=== PATIENT | male | born 1950 | race Caucasian/White ===

== ENCOUNTER 2023-08-24 20:25 | Emergency (ER) | payer MEDICARE, SELFPAY ==
[2023-08-24 20:30] VITALS: BP 169/86; PULSE 72; RESP 16; TEMP 36.3; O2SAT 99
--- NOTE | 2023-08-24 21:49 | ED_ITS ---
HPI - General Adult General Chief complaint: Abdominal Pain Stated complaint: Gallbladder Time Seen by Provider: 08/24/23 21:43 History of Present Illness HPI narrative: pt thinks his gallbladder is acting up. abd pain, upper right and left , no radiation. pt reports similar feeling on the , was not seen. 73-year-old man presenting to the emergency department concern of abdominal pain. Thinks that gallbladder might be acting up. Apparently about 3 years ago had a ?[place] [facility] scan? I take to mean ultrasound of carotids and other in the abdomen which apparently detected gallstones. On the of this month while in [place], had flare of upper abdominal pain which was apparently thought to be related to gallbladder. Now today at around 3:00 a.m. around 16 or 17 hours prior to arrival in the emergency department had abrupt onset of sharp and burning pain in the upper abdomen again. He gestures really across the upper abdomen and then had somewhat in lower. Only prior abdominal surgery was as a youth and inguinal hernia repair. He has had nausea but has not been vomiting. Pain was quite intense at 10/10. Spouse is emphatic that he has a very high pain tolerance. Now maybe a 3/10 does not seem to desire any intervention but they want to know what they need to do, make plan at this point before the head back to [place] in 2 and half days. Related Data Previous Rx's Medication Instructions Recorded metformin 500 mg tablet,extended 500 mg PO QDAY #90 tabs 04/29/22 release 24 hr omeprazole 20 mg capsule,delayed 20 mg PO QDAY #90 caps 04/29/22 release hydrocodone 5 mg-acetaminophen 325 1 - 2 tab PO Q4H PRN pain #12 tabs 08/25/23 mg tablet ondansetron 4 mg disintegrating 4 mg PO TID PRN nausea #10 tabs 08/25/23 tablet Allergies Allergy/AdvReac Type Severity Reaction Status Date / Time atorvastatin Allergy Unknown Verified 05/21/22 10:16 Review of Systems Status of ROS: Reports: 6 or more systems reviewed and unremarkable except as noted in History and below [facility] Medical History Obstructive sleep apnea syndrome ?G47.33 - Obstructive sleep apnea (adult) (pediatric) (ICD-10) Surgical History History of total right knee replacement ?Z96.651 - Presence of right artificial knee joint (ICD-10) History of total bilateral knee replacement ?Z96.653 - Presence of artificial knee joint, bilateral (ICD-10) History of hernia repair ?Z98.890 - Other specified postprocedural states (ICD-10) ?Z87.19 - Personal history of other diseases of the digestive system (ICD-10) History of colonoscopy ?Z98.890 - Other specified postprocedural states (ICD-10) Family History Father Colorectal cancer, Onset Age: 60 Thoracic aortic aneurysm (TAA), Onset Age: 50 Social History Narrative: Former cigarette smoker- quit 1980 Has 2 children, 3 grandchildren Smoking Status: Never smoker Non-prescribed substance use: denies use Exam Narrative: Exam Narrative: Pleasant. NAD. Skin is warm and dry. Extremities are well perfused without edema. Abdomen with rare but present abdominal sounds. Abdomen is generally soft and appears to be nontender but indicates some discomfort in the epigastrium. Negative York's. Heart in regular rate and rhythm. Lungs are clear. Const: Vital Signs, click to edit/add: Vital Signs - 24 hr 08/24/23 20:30 Temperature 97.4 F L Pulse Rate [Left P ulse Oximeter] 72 Respiratory Rate 16 Blood Pressure [Ri ght Upper Arm] 169/86 H Pulse Oximetry 99 Oxygen Delivery Me thod Room Air Documenting provider has reviewed patient's vital signs: yes Course Vital Signs Vital signs: Initial Vital Signs Temperature 97.4 F L 08/24/23 20:30 Temperature Source Temporal Artery Scan 08/24/23 20:30 Pulse Rate 72 08/24/23 20:30 Pulse Rhythm Regular 08/24/23 20:30 Respiratory Rate 16 08/24/23 20:30 Blood Pressure 169/86 H 08/24/23 20:30 Blood Pressure Mean 113 H 08/24/23 20:30 Blood Pressure Position Sitting 08/24/23 20:30 Pulse Oximetry 99 08/24/23 20:30 Oxygen Delivery Method Room Air 08/24/23 20:30 Vital Signs Temperature 97.4 F L 08/24/23 20:30 Pulse Rate 72 08/24/23 20:30 Respiratory Rate 16 08/24/23 20:30 Blood Pressure 169/86 H 08/24/23 20:30 Pulse Oximetry 99 08/24/23 20:30 Oxygen Delivery Method Room Air 08/24/23 20:30 Temperature 97.4 F L 08/24/23 20:30 Pulse Rate 72 08/24/23 20:30 Respiratory Rate 16 08/24/23 20:30 Blood Pressure 169/86 H 08/24/23 20:30 Pulse Oximetry 99 08/24/23 20:30 Oxygen Delivery Method Room Air 08/24/23 20:30 Medical Decision Making MDM Narrative Medical decision making narrative: Has been rather long duration of pain. Did not have any relief he indicates over the state hours for started to [place]. Is here however quite late in the day now in the emergency department. Will collect for labs. IV fluids. May need to reimage with ultrasound. Certainly could be vascular disruption as well. Apparently in family history have vascular disruption in the abdomen I believe a AAA. Differential includes biliary colic, pancreatitis, gastritis/GERD esophageal spasm, ischemic cardiovascular event. Food Concession Manager is available. Per my conversation with them they noted 4 mm gallbladder wall, one 2 cm and ano ther slightly smaller immobile gallstone. This though in the setting of somewhat contracted gallbladder. 5 mm cbd. Labs are overall reassuring. Elevated CRP at 3 but in the setting of normal transaminases. Cardiac labs are normal. Has not required any intervention for pain or nausea. Has slept in the emergency department. Still with some very mild discomfort. I would suspect biliary colic. Think this will continue to be an issue and would recommend surgical consultation as outpatient here in addition to dietary management in the meantime. Pending Radiology over-read at this time. Lab Data Lab results reviewed: Yes I reviewed the patient's lab results Labs: Lab Results 08/24/23 08/24/23 08/24/23 Range/Units 21:59 22:10 22:10 WBC 10.60 (4.50-11.00) K/uL RBC 4.52 (4.30-5.90) m/uL Hgb 13.7 (13.5-17.5) gm/dL Hct 41.0 (37.0-53.0) % MCV 91 (80-100) fL MCH 30 (26-34) pg MCHC 33 (32-36) gm/dL RDW Coeff of Betito 12.2 (11.5-15.5) % Plt Count 253 (140-440) K/uL Neut % (Auto) 62.9 (42.0-72.0) % Lymph % (Auto) 29.0 (20-44) % [place] % (Auto) 7.0 (0.0-11.0) % Eos % (Auto) 0.9 (0.0-7.0) % Baso % (Auto) 0.1 (0.0-3.0) % Neut # (Auto) 6.67 (1.7-7.0) K/uL Lymph # (Auto) 3.07 H (0.90-2.90) K/uL [place] # (Auto) 0.70 (0.00-0.90) K/UL Eos # (Auto) 0.10 (0.00-0.50) K/uL Baso # (Auto) 0.01 (0.00-0.30) K/uL Abs Immat Gran (auto) 0.01 (0.00-0.30) K/uL Imm/Tot Granulo (auto) 0.1 % D-Dimer Quant (PE/DVT) (0.00-0.50) ug/ml Sodium Cancelled 138 Potassium Cancelled Chloride Carbon Dioxide Anion Gap BUN Creatinine Estimated Creat Clear Estimated GFR Glucose Calcium Total Bilirubin (0.1-1.5) mg/dL Direct Bilirubin (0.0-0.5) mg/dL AST (12-35) U/L ALT (4-50) U/L Alkaline Phosphatase (40-150) U/L Troponin I (0.01-0.04) ng/mL C-Reactive Protein NT-Pro-B Natriuret Pep pg/mL Total Protein (6.0-8.3) g/dL Albumin (3.3-5.0) g/dL Lipase (23-300) U/L POC Troponin I 0.00 L (0.01-0.04) ng/ml 08/24/23 08/24/23 08/24/23 Range/Units 22:10 22:10 22:10 WBC (4.50-11.00) K/uL RBC (4.30-5.90) m/uL Hgb (13.5-17.5) gm/dL Hct (37.0-53.0) % MCV (80-100) fL MCH (26-34) pg MCHC (32-36) gm/dL RDW Coeff of Betito (11.5-15.5) % Plt Count (140-440) K/uL Neut % (Auto) (42.0-72.0) % Lymph % (Auto) (20-44) % [place] % (Auto) (0.0-11.0) % Eos % (Auto) (0.0-7.0) % Baso % (Auto) (0.0-3.0) % Neut # (Auto) (1.7-7.0) K/uL Lymph # (Auto) (0.90-2.90) K/uL [place] # (Auto) (0.00-0.90) K/UL Eos # (Auto) (0.00-0.50) K/uL Baso # (Auto) (0.00-0.30) K/uL Abs Immat Gran (auto) (0.00-0.30) K/uL Imm/Tot Granulo (auto) % D-Dimer Quant (PE/DVT) (0.00-0.50) ug/ml Sodium Potassium 4.0 Chloride Cancelled 102 Carbon Dioxide Cancelled 25 Anion Gap Cancelled BUN Creatinine Estimated Creat Clear Estimated GFR Glucose Calcium Total Bilirubin (0.1-1.5) mg/dL Direct Bilirubin (0.0-0.5) mg/dL AST (12-35) U/L ALT (4-50) U/L Alkaline Phosphatase (40-150) U/L Troponin I (0.01-0.04) ng/mL C-Reactive Protein NT-Pro-B Natriuret Pep pg/mL Total Protein (6.0-8.3) g/dL Albumin (3.3-5.0) g/dL Lipase (23-300) U/L POC Troponin I (0.01-0.04) ng/ml 08/24/23 08/24/23 08/24/23 Range/Units 22:10 22:10 22:10 WBC (4.50-11.00) K/uL RBC (4.30-5.90) m/uL Hgb (13.5-17.5) gm/dL Hct (37.0-53.0) % MCV (80-100) fL MCH (26-34) pg MCHC (32-36) gm/dL RDW Coeff of Betito (11.5-15.5) % Plt Count (140-440) K/uL Neut % (Auto) (42.0-72.0) % Lymph % (Auto) (20-44) % [place] % (Auto) (0.0-11.0) % Eos % (Auto) (0.0-7.0) % Baso % (Auto) (0.0-3.0) % Neut # (Auto) (1.7-7.0) K/uL Lymph # (Auto) (0.90-2.90) K/uL [place] # (Auto) (0.00-0.90) K/UL Eos # (Auto) (0.00-0.50) K/uL Baso # (Auto) (0.00-0.30) K/uL Abs Immat Gran (auto) (0.00-0.30) K/uL Imm/Tot Granulo (auto) % D-Dimer Quant (PE/DVT) (0.00-0.50) ug/ml Sodium Potassium Chloride Carbon Dioxide Anion Gap 11 BUN Cancelled 17 Creatinine Cancelled 0.9 Estimated Creat Clear Cancelled Estimated GFR Cancelled Glucose Calcium Total Bilirubin (0.1-1.5) mg/dL Direct Bilirubin (0.0-0.5) mg/dL AST (12-35) U/L ALT (4-50) U/L Alkaline Phosphatase (40-150) U/L Troponin I (0.01-0.04) ng/mL C-Reactive Protein NT-Pro-B Natriuret Pep pg/mL Total Protein (6.0-8.3) g/dL Albumin (3.3-5.0) g/dL Lipase (23-300) U/L POC Troponin I (0.01-0.04) ng/ml 08/24/23 08/24/23 08/24/23 Range/Units 22:10 22:10 22:10 WBC (4.50-11.00) K/uL RBC (4.30-5.90) m/uL Hgb (13.5-17.5) gm/dL Hct (37.0-53.0) % MCV (80-100) fL MCH (26-34) pg MCHC (32-36) gm/dL RDW Coeff of Betito (11.5-15.5) % Plt Count (140-440) K/uL Neut % (Auto) (42.0-72.0) % Lymph % (Auto) (20-44) % [place] % (Auto) (0.0-11.0) % Eos % (Auto) (0.0-7.0) % Baso % (Auto) (0.0-3.0) % Neut # (Auto) (1.7-7.0) K/uL Lymph # (Auto) (0.90-2.90) K/uL [place] # (Auto) (0.00-0.90) K/UL Eos # (Auto) (0.00-0.50) K/uL Baso # (Auto) (0.00-0.30) K/uL Abs Immat Gran (auto) (0.00-0.30) K/uL Imm/Tot Granulo (auto) % D-Dimer Quant (PE/DVT) (0.00-0.50) ug/ml Sodium Potassium Chloride Carbon Dioxide Anion Gap BUN Creatinine Estimated Creat Clear Estimated GFR 91 Glucose Cancelled 115 Calcium Cancelled 9.1 Total Bilirubin 0.6 (0.1-1.5) mg/dL Direct Bilirubin 0.0 (0.0-0.5) mg/dL AST 20 (12-35) U/L ALT 23 (4-50) U/L Alkaline Phosphatase 104 (40-150) U/L Troponin I < 0.01 L (0.01-0.04) ng/mL C-Reactive Protein Cancelled NT-Pro-B Natriuret Pep pg/mL Total Protein (6.0-8.3) g/dL Albumin (3.3-5.0) g/dL Lipase (23-300) U/L POC Troponin I (0.01-0.04) ng/ml 08/24/23 08/24/23 Range/Units 22:10 22:45 WBC (4.50-11.00) K/uL RBC (4.30-5.90) m/uL Hgb (13.5-17.5) gm/dL Hct (37.0-53.0) % MCV (80-100) fL MCH (26-34) pg MCHC (32-36) gm/dL RDW Coeff of Betito (11.5-15.5) % Plt Count (140-440) K/uL Neut % (Auto) (42.0-72.0) % Lymph % (Auto) (20-44) % [place] % (Auto) (0.0-11.0) % Eos % (Auto) (0.0-7.0) % Baso % (Auto) (0.0-3.0) % Neut # (Auto) (1.7-7.0) K/uL Lymph # (Auto) (0.90-2.90) K/uL [place] # (Auto) (0.00-0.90) K/UL Eos # (Auto) (0.00-0.50) K/uL Baso # (Auto) (0.00-0.30) K/uL Abs Immat Gran (auto) (0.00-0.30) K/uL Imm/Tot Granulo (auto) % D-Dimer Quant (PE/DVT) 0.52 H (0.00-0.50) ug/ml Sodium Potassium Chloride Carbon Dioxide Anion Gap BUN Creatinine Estimated Creat Clear Estimated GFR Glucose Calcium Total Bilirubin (0.1-1.5) mg/dL Direct Bilirubin (0.0-0.5) mg/dL AST (12-35) U/L ALT (4-50) U/L Alkaline Phosphatase (40-150) U/L Troponin I (0.01-0.04) ng/mL C-Reactive Protein 3.0 H NT-Pro-B Natriuret Pep 698 pg/mL Total Protein 7.4 (6.0-8.3) g/dL Albumin 4.3 (3.3-5.0) g/dL Lipase 84 (23-300) U/L POC Troponin I (0.01-0.04) ng/ml Discharge Plan Discharge Clinical Impression: Cholelithiasis, Biliary colic, Acute epigastric pain Patient Disposition: Home w/ Parent or Adult Condition: Improved Additional Instructions: Stay well-hydrated. Avoid fatty, greasy meals at this point. Please follow-up as soon as possible with your primary care provider and/or general surgeon when you get to [place] to make plans for next step in evaluation/care. Take this copy of disc of images with you to follow-up appointment. Prescriptions: New ondansetron 4 mg tablet,disintegrating 4 mg PO TID PRN (Reason: nausea) Qty: 10 0RF hydrocodone-acetaminophen 5-325 mg tablet 1 - 2 tab PO Q4H PRN (Reason: pain) Qty: 12 0RF No Action metformin 500 mg tablet extended release 24 hr 500 mg PO QDAY Qty: 90 0RF Rx Instructions: Due for a physical. omeprazole 20 mg capsule,delayed release(DR/EC) 20 mg PO QDAY Qty: 90 0RF Rx Instructions: Due for a physical. Follow Up/Referrals: Phoenix Fritz MD [Referring] - Stand Alone Forms: [employer] Info Instructions
--- OUTSIDE RECORDS SUMMARY | 2023-08-24 22:16 | XMS_ITS | Continuity of Care Document ---
Author Name Unknown Organization [facility] Address [address] [address] [place] [address] Phone Care Team Providers Care Dinkey Motor Operator Name Role Phone Love Morillo MD Unavailable Unavailable Procedures Procedure Date Colonoscopy Flex; W/bx 1/mx Advance Directives Directive Yes / No Effective Date File Name No Information Encounters Encounter Description Practice Location Reason(s) For Visit Diagnoses Date Provider Providers Copied on Encounter [facility], [address] [address], [place], [place], [id number], [place] tel:[phone] [facility] No Information Yisel Aleman. [address], [place], [place], [id number], [place]. tel:[phone] Referring Provider: Noe Serrano MD [place], [address] [place], [address]. tel:[phone] Family History Family Member Type Diagnosis Age At Onset No Information Payers Payer name Insurance type Covered libertarian ID Authoriza tion(s) [employer] [place] [employer] [id number] Social History Type Description Quantity Date Captured Comments Sex Male Smoking Status No Information Chief Complaint And Reason For Visit No Information Reason For Referral Reason For Referral No Information History Of Present Illness Encounter Date Complaint History Of Prese nt Illness No Information Functional Status Date Functional Assessmen t No Information Instructions Date Instruction Additional Infor mation No Information Assessments Type Assessment Date No Information Patient Care Teams Name Effective Dates (start - stop) Status Members No Information
--- NOTE | 2023-08-24 22:20 | CRLHL7_ITS ---
For Patients: As a result of the Century Cures Act, medical imaging exams and procedure reports are released immediately into your electronic medical record. You may view this report before your referring provider. If you have questions, please contact your health care provider. INDICATION: Epigastric. TECHNIQUE: Ultrasound abdomen limited. Sonographic images of the right upper quadrant were obtained using farooq-scale and color Doppler images. COMPARISON: None. FINDINGS: Liver: Mild diffuse hepatic steatosis. No intrahepatic biliary dilatation. Gallbladder: Cholelithiasis. Normal wall thickness. No pericholecystic fluid. Common bile duct: Five mm. Pancreas: Pancreas is relatively obscured bowel gas. Right kidney: Normal in size. Normal echotexture and cortex. No shadowing stones, or hydronephrosis. Vasculature: Proximal abdominal aortic aneurysm measuring up to 3.4 cm. IMPRESSION: 1. Cholelithiasis without imaging findings of cholecystitis. 2. Proximal abdominal aortic aneurysm measuring up to 3.4 cm. Dictated by Adrian Kinney MD @ 08/25/2023 1:39:55 AM (Electronically Signed)
[2023-08-24 22:22] LABS: Basophils Absolute Auto 0.01 K/uL (0.00-0.30); Basophils Percent Auto 0.1 % (0.0-3.0); Eosinophils Percent Auto 0.9 % (0.0-7.0); Hemoglobin* 13.7 gm/dL (13.5-17.5); Immature Granulocytes Abs Auto 0.01 K/uL (0.00-0.30); Immature Granulocytes Pct Auto 0.1 %; Lymphocytes Absolute Auto 3.07 K/uL (0.90-2.90); Mean Corpuscular HGB Conc 33 gm/dL (32-36); Mean Corpuscular Hemoglobin 30 pg (26-34); Mean Corpuscular Volume 91 fL (80-100); Neutrophils Absolute Auto 6.67 K/uL (1.7-7.0); Neutrophils Percent Auto 62.9 % (42.0-72.0); Platelet Count* 253 K/uL (140-440); RDW Coefficient of Variation % 12.2 % (11.5-15.5); Red Blood Count 4.52 m/uL (4.30-5.90)
[2023-08-24 22:36] LABS: Slide Review Reflex No
[2023-08-24 22:40] LABS: Albumin* 4.3 g/dL (3.3-5.0); Chloride* 102 mmol/L (96-114); Sodium* 138 mmol/L (135-149)
[2023-08-24 22:43] LABS: Creatinine* 0.9 mg/dL (0.5-1.5); Estimated Glomerular Filt Rate 91 ml/min
[2023-08-24 22:44] LABS: Alanine Aminotransferase* 23 U/L (4-50); Alkaline Phosphatase* 104 U/L (40-150); Anion Gap 11 mEq/L (7-15); Aspartate Amino Transferase* 20 U/L (12-35); Bilirubin Total* 0.6 mg/dL (0.1-1.5); Blood Urea Nitrogen* 17 mg/dL (7-30); Calcium* 9.1 mg/dL (8.4-10.6); Carbon Dioxide* 25 mmol/L (20-32); Glucose* 115 mg/dL (60-115); Lipase* 84 U/L (23-300); Total Protein* 7.4 g/dL (6.0-8.3)
[2023-08-24 22:58] LABS: NT Pro B Type NatriureticPept* 698 pg/mL; Troponin I* < 0.01 ng/mL (0.01-0.04)
[2023-08-24 23:25] LABS: D Dimer Quantitative* 0.52 ug/ml (0.00-0.50)
== END 2023-08-25 01:13 | disposition home or self-care (01) ==
PROVIDERS: Emergency Provider Family Medicine; PCP Physician Assistant Medical
DX: R10.13 Epigastric pain (principal); K80.50 Calculus of bile duct without cholangitis or cholecystitis without obstruction
CPT/HCPCS: 36415; 76705; 80048; 80076; 83690; 83880; 84484; 85025; 85379; 86140; 99284